=== PATIENT | female | born 1970 | race Two or more races ===

== ENCOUNTER 2024-07-01 06:52 | Day surgery (SDC) | payer BC, MEDICARE ==
[~2024-07-01] VITALS: Ht 167.6 cm; Wt 88.5 kg
[~2024-07-01 06:52] MED LIST: DULO60CA41 PO; ceFAZolin 2 GM/D5W100ml 100 ML IV ONE
[2024-07-01] MEDS ORDERED: GABAPENTIN 400 MG CAP ONE (06:55)
[2024-07-01] MEDS: GABAPENTIN 400 MG CAP PO ONE (07:00)
[2024-07-01] MEDS: CELECOXIB 100 MG CAP PO ONE (07:00)
[2024-07-01] MEDS: HEPARIN SODIUM (PORCINE) 5000 UNITS/ML 1ML VIAL ONE (07:00)
[2024-07-01] MEDS: ACETAMINOPHEN IV 1000 MG/100ML (10MG/ML) IV ONE (07:00)
[2024-07-01] MEDS ORDERED: ROCURONIUM 10MG/ML 10ML VIAL IV ONE (07:22)
[2024-07-01] MEDS ORDERED: LIDOCAINE 2% (LOCAL ANESTH.) PF 5ml SDV ONE (07:22)
[2024-07-01] MEDS ORDERED: ONDANSETRON HCL 4 MG/2 ML VIAL ONE (07:22)
[2024-07-01] MEDS ORDERED: KETOROLAC TROMETH 30 MG/ML 1ML VIAL ONE (07:22)
[2024-07-01] MEDS ORDERED: DexAMETHasone SOD PHOS 10MG/1ML VIAL INJ ONE (07:22)
[2024-07-01] MEDS ORDERED: GLYCOPYRROLATE 0.2 MG/ML 1ML VIAL ONE (07:22)
[2024-07-01] MEDS ORDERED: PROPOFOL 10 MG/ML 20 ML IV ONE (07:22)
[2024-07-01] MEDS ORDERED: fentaNYL CITRATE 100 MCG/2 ML VL ONE (07:23)
[2024-07-01] MEDS ORDERED: SUGAMMADEX 200mg/2ml Vial (100MG/ML) IV ONE (07:23)
[2024-07-01] MEDS: LIDOCAINE 1% HCL (LOCAL ANESTH.) INJ 20ML MDV ONE (07:27)
[2024-07-01] MEDS: BUPIVACAINE 0.5% MPF INJ 30ML SDV IJ ONE (07:27)
[2024-07-01] MEDS ORDERED: LIDOCAINE HCL 2% TOP JELLY 5ML TOP ONE (07:55)
[2024-07-01] MEDS ORDERED: HEPARIN SODIUM (PORCINE) 5000 UNITS/ML 1ML VIAL SC ONE (08:00)
[2024-07-01 08:27] VITALS: TEMP 97.7; O2SAT 100
[2024-07-01] MEDS ORDERED: fentaNYL CITRATE 100 MCG/2 ML VL IV PRN (08:45)
[2024-07-01] MEDS ORDERED: hydrALAZINE HCL 20 MG/ML VL IV PRN (08:45)
[2024-07-01] MEDS ORDERED: ONDANSETRON HCL 4 MG/2 ML VIAL IV PRN (08:45)
[2024-07-01] MEDS ORDERED: FLUMAZENIL 0.1 MG/ML INJ 10ML MDV IV PRN (08:45)
[2024-07-01] MEDS ORDERED: MORPHINE SULFATE 4 MG/ML SYR/VIAL IV PRN (08:45)
[2024-07-01] MEDS ORDERED: ePHEDrine SULFATE 50 MG/ML AMP IV PRN (08:45)
[2024-07-01] MEDS ORDERED: NALOXONE HCL 0.4 MG/ML VIAL IV PRN (08:45)
--- NOTE | 2024-07-01 08:49 | DVHOP ---
DATE OF SURGERY: 07/01/2024 PREOPERATIVE DIAGNOSIS: Umbilical hernia. POSTOPERATIVE DIAGNOSES: * Incarcerated 5 mm umbilical hernia. * No evidence of inguinal hernia. PROCEDURE: Diagnostic laparoscopy and primary repair of 0.5 cm incarcerated umbilical hernia. SURGEON: Dominick Arechiga MD RIG SUPERINTENDENT: None. ANESTHESIOLOGIST: Cayetano Marcus CRNA ANESTHESIA: General by means of endotracheal intubation. INTRAOPERATIVE FINDINGS: * Adhesions involving the omentum against the anterior abdominal wall in the infraumbilical midline region. * No evidence of inguinal hernia. * 0.5 cm incarcerated umbilical hernia with preperitoneal fat within the sac. ESTIMATED BLOOD LOSS: Minimal. INTRAVENOUS FLUIDS: Per Anesthesia charting. URINE OUTPUT: Not recorded given Hill catheter was not inserted. DRAINS: None. IMPLANTS: None. SPECIMENS: None. COMPLICATIONS: None. Procedure well tolerated and transferred to recovery room in stable condition. INDICATION FOR PROCEDURE: The patient is a 54-year-old female who has a documented umbilical hernia on imaging. There was suggestion of bilateral inguinal hernias. However, there were no physical exam findings that would suggest an inguinal hernia. Given the above-mentioned information, I had a lengthy discussion with the patient and I recommended a diagnostic laparoscopy to assess whether the patient had inguinal hernias and a concurrent umbilical hernia repair, possibly with mesh. The procedure, risks, and benefits were explained in a detailed and extensive fashion. All questions were answered. She understood and agreed to proceed. DESCRIPTION OF PROCEDURE: The patient was taken to the operating room. She was placed in the dorsal decubitus position on the operating table. Once adequate anesthesia was achieved, the patient's right arm was tucked to her side paying careful attention on providing adequate positioning as well as padding to prevent any potential injuries. The abdomen was widely prepped and draped in usual sterile fashion. My attention was then directed towards the periumbilical region where local anesthesia consisting of 1% lidocaine and 0.5% Marcaine was infiltrated. An infraumbilical curvilinear incision was made with a 15 blade. The dermis and subcutaneous tissue were incised to the level of the fascia, circumferentially around the hernia sac with electrocautery. The umbilical stalk was divided from the hernia sac using electrocautery without damage/injury to the umbilical stalk or hernia contents. The patient was noted to have a 0.5 cm incarcerated umbilical hernia with preperitoneal fat. The preperitoneal fat was excised. A 5 mm trocar was inserted into the abdominal cavity and pneumoperitoneum of 15 mmHg was achieved. A 5 mm 30-degree laparoscope was inserted into the abdominal cavity. A thorough survey of the abdominal cavity did not reveal any evidence of injury or bleeding upon entry. There were some adhesions involving the omentum against the infraumbilical anterior abdominal wall. I was able to navigate around the adhesions. The patient was placed in the Trendelenburg position, exposing the pelvis. No evidence of inguinal hernias was observed. Pictures were taken. At this time, the laparoscopic approach was terminated. The pneumoperitoneum was evacuated and the 5 mm trocar was removed. The umbilical hernia was repaired in a [id number] fashion with 0 Vicryl sutures x3, successfully repairing the hernia. The wound was washed and dried. The umbilical stalk was tacked down to the underlying fascia by means of an interrupted 3-0 Vicryl suture, obtaining adequate inversion as well as cosmetic result. The subcutaneous tissue and dermis were approximated with several interrupted 3-0 Vicryl sutures. The skin was closed with 4-0 Monocryl in a subcuticular fashion. The wound was washed and dried and sterile dressings were applied. The patient tolerated well procedure. There were no complications. She was successfully extubated in the operating room and transferred to recovery room in stable condition. MD EVELYN Lomas/CL TID: [id number] RECEIPT: [id number]
[2024-07-01] MEDS: oxyCODONE HCL 5MG TAB PO PRN (09:05)
[2024-07-01 09:42] VITALS: BP 126/76; PULSE 78; RESP 14; O2SAT 96
== END 2024-07-01 09:56 | disposition home or self-care (01) ==
LOC: SUR 06:52
DX: K42.0 Umbilical hernia with obstruction, without gangrene (principal); E66.9 Obesity, unspecified; Z68.31 Body mass index [BMI] 31.0-31.9, adult; M32.9 Systemic lupus erythematosus, unspecified; Z90.710 Acquired absence of both cervix and uterus; Z90.49 Acquired absence of other specified parts of digestive tract; Z98.890 Other specified postprocedural states
CPT/HCPCS: 49592; 86850; 86900; 86901; J1100; J1644; J1885; J2003; J2405; J2704; J3490; J0131